=== PATIENT | male | born 1950 | race Caucasian/White ===

== ENCOUNTER → 2017-07-30 | Outpatient (CLI) | payer OTHER ==
[~2017-07-30] MED LIST: ASPI81CH; COUMADIN; CYCL10 PO; DULO60; HYDACE5 PO; NAPR500EC PO; Norco 5-325 Ta1 EACH PO; OMEP20ER PO; TRAZ100; VERA120ERB; Valium5 MG PO; [UNRECOGNIZED DRUG - OTHER]
[2017-08-04 13:08] LABS: M-SPIKE, % Not Observed % (Not Observed); PROTEIN,TOTAL,URINE 15.7 mg/dL (Not Estab.)
== END | disposition home or self-care (01) ==
LOC: LAB SHORT 10:02 → LAB 10:02
PROVIDERS: Internal Medicine
DX: D80.8 Other immunodeficiencies with predominantly antibody defects (principal); R79.89 Other specified abnormal findings of blood chemistry
CPT/HCPCS: 81050; 84166; 86335

== ENCOUNTER → 2018-08-19 | Outpatient (CLI) | payer OTHER ==
[~2018-08-19] MED LIST changes: +ALBU90OI61 INH; +ENAL20 PO; +Nortriptyline H10 MG PO; +STIOLTO RESPIMAT4 GM INH; +Verapamil ER200 MG PO; +WARF10 PO
== END ==
LOC: LAB SHORT 07:37 → PLD 07:37
DX: L30.9 Dermatitis, unspecified (principal); D48.5 Neoplasm of uncertain behavior of skin
CPT/HCPCS: 88312

== ENCOUNTER → 2018-08-26 | Outpatient (CLI) | payer OTHER | LOC: LAB 17:36 → LAB SHORT 17:36 | DX: L08.9 Local infection of the skin and subcutaneous tissue, unspecified (principal) | CPT/HCPCS: 87070; 87077; 87106; 87186; 87205 ==

== ENCOUNTER 2020-08-09 19:05 | Emergency (ER) | payer OTHER ==
[~2020-08-09] VITALS: Ht 193 cm; Wt 117.9 kg
== END 2020-08-09 23:59 | disposition home or self-care (01) ==
LOC: ER 19:05
DX: H54.61 Unqualified visual loss, right eye, normal vision left eye (principal); I10 Essential (primary) hypertension; J44.9 Chronic obstructive pulmonary disease, unspecified; Z79.01 Long term (current) use of anticoagulants; Z79.899 Other long term (current) drug therapy
CPT/HCPCS: 70450; 99284-25

== ENCOUNTER 2020-08-10 12:04 | Emergency (ER) | payer OTHER ==
[~2020-08-10] VITALS: Ht 193 cm; Wt 120.0 kg
[2020-08-10 13:16] LABS: BASOPHILS ABSOLUTE AUTO 0.05 K/mm3 (0.00-0.23); BASOPHILS PERCENT AUTO 1 % (0-2); EOSINOPHILS ABSOLUTE AUTO 0.08 K/mm3 (0.00-0.68); EOSINOPHILS PERCENT AUTO 1 % (0-6); Hematocrit 35.3 % (37.0-53.0); Hemoglobin 11.9 g/dL (13.5-17.5); IMMATURE GRAN ABSOLUTE AUTO 0.12 K/mm3 (0.00-0.10); IMMATURE GRAN PERCENT AUTO 1 % (0-1); LYMPHOCYTES ABSOLUTE AUTO 1.21 K/mm3 (0.84-5.20); LYMPHOCYTES PERCENT AUTO 11 % (21-46); MONOCYTES PERCENT AUTO 17 % (4-13); Mean Corpuscular HGB 31.1 pg (26.0-34.0); Mean Corpuscular HGB Conc 33.7 g/dL (31.5-36.5); Mean Corpuscular Volume 92 fL (80-100); Mean Platelet Volume 9.2 fL (9.1-12.4); NEUTROPHILS ABSOLUTE AUTO 7.66 K/mm3 (1.96-9.15); NEUTROPHILS PERCENT AUTO 70 % (41-73); Platelet Count 167 K/mm3 (150-400); RDW Coefficient Variation 12.9 % (11.7-14.2); RDW Standard Deviation 43.5 fL (35.1-46.3); Red Blood Cell Count 3.83 M/mm3 (4.30-5.90); White Blood Cell Count 10.92 K/mm3 (4.00-11.30)
[2020-08-10 13:38] LABS: Alanine Aminotransfer (ALT/SGP 32 U/L (12-78); Albumin, Blood 2.8 g/dL (3.4-5.0); Albumin/Globulin Ratio 0.7 (0.8-1.8); Alk Phos 56 U/L (50-136); Anion Gap 4 mmol/L (6-16); Aspartate Aminotrans (AST/SGOT 32 U/L (12-37); Bilirubin, Total 0.6 mg/dL (0.1-1.0); Blood Urea Nitrogen 21 mg/dL (8-24); Bun/Creatinine Ratio 22.3 (12.0-20.0); C-REACTIVE PROTEIN, EXT RANGE >19.000 mg/dL (0.000-0.300); CO2, Blood 28 mmol/L (21-32); Calcium, Blood 8.6 mg/dL (8.5-10.1); Chloride, Blood 97 mmol/L (98-108); Creatinine, Blood 0.94 mg/dL (0.60-1.20); Globulin, Blood 4.1 g/dL (2.2-4.0); Glomerular Filtration Rate >60 (60-); Glucose, Blood 131 mg/dL (70-99); Potassium, Blood 3.9 mmol/L (3.5-5.5); Sodium, Blood 129 mmol/L (136-145); Total Protein, Blood 6.9 g/dL (6.4-8.2)
[2020-08-10 14:10] LABS: International Normalized Ratio 1.06; Prothrombin Time Results 11.4 Sec (9.7-11.5)
== END 2020-08-10 17:27 | disposition home or self-care (01) ==
LOC: ER 12:04
PROVIDERS: Physician Assistant
DX: I65.21 Occlusion and stenosis of right carotid artery (principal); J44.9 Chronic obstructive pulmonary disease, unspecified; I10 Essential (primary) hypertension; Z79.01 Long term (current) use of anticoagulants; Z79.899 Other long term (current) drug therapy; Z87.891 Personal history of nicotine dependence
CPT/HCPCS: 36415; 80053; 85025; 85610; 85651; 86140; 93005; 93010; 99283-25

== ENCOUNTER 2021-03-21 16:23 | Emergency (ER) | payer OTHER ==
[~2021-03-21] VITALS: Ht 190.5 cm; Wt 113.4 kg
[~2021-03-21 16:23] MED LIST changes: +ATORVASTATIN CA20 MG PO; +Enalapril Malea20 MG PO; +FUROSEMIDE40 MG PO; +KLOR-CON 1010 ME1 PO; +OXYC10TA19 PO; +Percocet 10-321 EACH PO; +Robaxin750 MG PO
[2021-03-21] MEDS ORDERED: Methocarbamol750 MG PO (16:46)
[2021-03-21] MEDS ORDERED: OXYACE7.5T PO (18:49)
[2021-03-21] MEDS ORDERED: Robaxin750 MG PO (18:49)
== END 2021-03-21 19:08 | disposition home or self-care (01) ==
LOC: ER 16:23
DX: M54.50 Low back pain, unspecified (principal); M54.2 Cervicalgia; M54.6 Pain in thoracic spine; G89.29 Other chronic pain; I10 Essential (primary) hypertension; J44.9 Chronic obstructive pulmonary disease, unspecified; Z79.899 Other long term (current) drug therapy; Z79.01 Long term (current) use of anticoagulants; Z87.891 Personal history of nicotine dependence
CPT/HCPCS: A9270; J1170; J1885; J2405

== ENCOUNTER → 2022-05-24 | Outpatient (CLI) | payer OTHER ==
[~2022-05-24] MED LIST changes: +Methocarbamol750 MG PO; +OXYACE7.5T PO
[2022-05-24 11:13] LABS: International Normalized Ratio 1.55; Prothrombin Time Results 15.8 Sec (9.7-11.5)
== END ==
LOC: LAB SHORT 10:49 → LAB 10:49
PROVIDERS: Internal Medicine
DX: Z95.2 Presence of prosthetic heart valve (principal)
CPT/HCPCS: 36415; 85610

== ENCOUNTER → 2022-05-25 | Outpatient (CLI) | payer OTHER ==
[2022-05-25 11:26] LABS: International Normalized Ratio 1.76; Prothrombin Time Results 17.8 Sec (9.7-11.5)
== END | disposition home or self-care (01) ==
LOC: LAB SHORT 10:58 → LAB 10:58
PROVIDERS: Internal Medicine
DX: Z95.2 Presence of prosthetic heart valve (principal)
CPT/HCPCS: 36415; 85610

== ENCOUNTER → 2024-01-16 | Outpatient (CLI) | payer OTHER ==
[2024-01-16 09:45] LABS: International Normalized Ratio 1.15; Prothrombin Time Results 12.2 Sec (9.7-11.5)
== END ==
LOC: LAB 08:59 → LAB SHORT 08:59
PROVIDERS: Internal Medicine
DX: Z95.2 Presence of prosthetic heart valve (principal)
CPT/HCPCS: 85610

== ENCOUNTER → 2024-01-23 | Outpatient (CLI) | payer OTHER ==
[2024-01-23 09:53] LABS: International Normalized Ratio 1.75
== END ==
LOC: LAB SHORT 09:32 → LAB 09:32
PROVIDERS: Internal Medicine
DX: Z51.81 Encounter for therapeutic drug level monitoring (principal); Z95.2 Presence of prosthetic heart valve
CPT/HCPCS: 85610

== ENCOUNTER → 2024-01-24 | Outpatient (CLI) | payer OTHER ==
[2024-01-24 11:40] LABS: International Normalized Ratio 1.89; Prothrombin Time Results 19.3 Sec (9.7-11.5)
== END ==
LOC: LAB 11:10 → LAB SHORT 11:10
PROVIDERS: Internal Medicine
DX: Z95.2 Presence of prosthetic heart valve (principal)
CPT/HCPCS: 36415; 85610

== ENCOUNTER → 2024-06-18 | Outpatient (CLI) | payer OTHER ==
[2024-06-18 11:02] LABS: International Normalized Ratio 1.41; Prothrombin Time Results 14.7 Sec (9.7-11.5)
== END ==
LOC: LAB SHORT 10:36 → LAB 10:36
PROVIDERS: Internal Medicine
DX: I35.8 Other nonrheumatic aortic valve disorders (principal)
CPT/HCPCS: 85610